=== PATIENT | male | born 1965 | race Caucasian/White ===

== ENCOUNTER 2019-09-13 08:22 | Emergency (ER) | payer BC ==
[2019-09-13] MEDS ORDERED: 0.9 % SODIUM CHLORIDE 1,000 ML BAG IV ONE ×3 (08:41→10:18)
[2019-09-13] MEDS ORDERED: ONDANSETRON HCL IV 4 MG/2 ML VIAL IV ONE (08:41)
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
[2019-09-13 08:48] LABS: STREP A SCREEN NEGATIVE (NEGATIVE)
[2019-09-13] MEDS ORDERED: KETOROLAC 30 MG/ML VIAL IVP ONE (08:51)
[2019-09-13 08:54] LABS: INFLUENZA A NEGATIVE (NEGATIVE); INFLUENZA B NEGATIVE (NEGATIVE)
[2019-09-13 08:59] LABS: ABSOLUTE NEUTROPHIL COUNT 8.23; BASO % 0.1 % (0-6); EOS % 0.1 % (0-6); GRAN % 79.9 % (47-80); HEMATOCRIT 45.9 % (42.0-52.0); HEMOGLOBIN 15.3 gm/dl (14.0-18.0); LYMPH % 9.8 % (16-45); MEAN CELL VOLUME 87.8 fl (81-97); MEAN CORPUSCULAR HEMOGLOBIN 29.3 pg (27-33); MEAN CORPUSCULAR HGB CONC 33.3 g/dl (32-36); MEAN PLATELET VOLUME 9.2 fl (7.4-10.4); MONO % 10.1 % (0-9); PLATELET COUNT 229 K/uL (130-400); RED BLOOD COUNT 5.23 M/uL (4.40-5.70); RED CELL DISTRIBUTION WIDTH 12.4 % (11.5-14.5); WHITE BLOOD COUNT W/O DIFF 10.3 K/uL (4.2-12.2)
--- NOTE | 2019-09-13 09:11 | RADIOLOGY REPORT ---
EXAMINATION: Two View Chest Radiographs EXAM DATE: 09/13/2019 9:05 AM TECHNIQUE: Frontal and lateral views INDICATION: Cough, weakness. COMPARISON: May 19, 2016 ENCOUNTER: Not applicable FINDINGS: The cardiac and mediastinal silhouettes are stable. No focal airspace consolidation, pneumothorax or pleural effusion. IMPRESSION: No radiographic evidence of an acute cardiopulmonary abnormality. Dictated by: Florin Kelly on 09/13/2019 9:07 AM. .
[2019-09-13 09:38] LABS: BLOOD UREA NITROGEN 17 mg/dL (6-20); CREATININE 1.1 mg/dL (0.7-1.2); EST GLOMERULAR FILTRATION RATE > 60 mL/min; TOTAL PROTEIN 7.4 g/dL (6.6-8.7)
[2019-09-13 09:40] LABS: GLUCOSE,RANDOM 107 mg/dL (74-109)
[2019-09-13 09:43] LABS: ALB/GLOB RATIO 1.5 (1.1-1.8); ALBUMIN 4.4 g/dL (4.0-5.0); ALKALINE PHOSPHATASE 98 U/L (40-129); ALT/SGPT 62 U/L (<41); AST/SGOT 31 U/L (10.0-50.0)
[2019-09-13 10:46] LABS: URINE APPEARANCE CLEAR; URINE BILIRUBIN NEGATIVE (NEGATIVE); URINE BLOOD NEGATIVE (NEGATIVE); URINE COLOR YELLOW; URINE GLUCOSE (UA) NEGATIVE (NEGATIVE); URINE KETONE 15 mg/dL (NEGATIVE); URINE LEUKOCYTE ESTERASE NEGATIVE (NEGATIVE); URINE NITRITE NEGATIVE (NEGATIVE); URINE PROTEIN NEGATIVE (NEGATIVE); URINE UROBILINOGEN 0.2 E.U./dL (0.20 - 1.00)
[2019-09-13] MEDS ORDERED: ACETAMINOPHEN 500 MG TABLET PO ONE (10:59)
[2019-09-13] MEDS ORDERED: HYDROMORPHONE HCL 2 MG/ML VIAL IM ONE (11:34)
[2019-09-13] MEDS ORDERED: ONDANSETRON HCL IV 4 MG/2 ML VIAL IM ONE (11:36)
== END 2019-09-13 12:37 | disposition home or self-care (01) ==
LOC: ER 08:22
DX: E86.0 Dehydration (principal); B34.9 Viral infection, unspecified; R51 Headache; G89.21 Chronic pain due to trauma; M54.2 Cervicalgia; R06.02 Shortness of breath; R11.0 Nausea; R05 Cough; R53.1 Weakness
CPT/HCPCS: 71046; 80053; 81003; 85025; 87400; 87880; 96372; 96374; 96375; 99284; J1885; J2405; J7030